=== PATIENT | male | born 1955 | race Caucasian/White ===

== ENCOUNTER → 2017-07-17 | Outpatient (CLI) | payer OTHER | END | disposition home or self-care (01) | LOC: CRE 15:15 | DX: I25.10 Atherosclerotic heart disease of native coronary artery without angina pectoris (principal); I25.2 Old myocardial infarction; I20.9 Angina pectoris, unspecified; Z95.5 Presence of coronary angioplasty implant and graft | CPT/HCPCS: 93797 ==